=== PATIENT | male | born 1950 | race Caucasian/White ===

== ENCOUNTER 2017-10-16 21:27 | Emergency (ER) | payer MEDICARE, OTHER ==
[~2017-10-16] VITALS: Ht 180.3 cm; Wt 90.7 kg
[~2017-10-16 21:27] MED LIST: ATOR10 PO; LEVSOD100 PO
[2017-10-17] MEDS ORDERED: ERYT1OIN BOTHEYES (01:05)
== END 2017-10-17 01:21 | disposition home or self-care (01) ==
LOC: ER 21:27
DX: S05.02XA Injury of conjunctiva and corneal abrasion without foreign body, left eye, initial encounter (principal); S05.01XA Injury of conjunctiva and corneal abrasion without foreign body, right eye, initial encounter; X58.XXXA Exposure to other specified factors, initial encounter; Z88.1 Allergy status to other antibiotic agents; Z88.8 Allergy status to other drugs, medicaments and biological substances; Z79.899 Other long term (current) drug therapy; Z79.2 Long term (current) use of antibiotics
CPT/HCPCS: 99283

== ENCOUNTER 2021-03-13 07:46 | Inpatient (IN) | payer MEDICARE ==
[~2021-03-13] VITALS: Ht 180.3 cm; Wt 92.0 kg
[~2021-03-13 07:46] MED LIST changes: +ERYT1OIN BOTHEYES
[2021-03-13 09:47] LABS: BASOPHILS ABSOLUTE AUTO 0.04 K/mm3 (0.00-0.23); BASOPHILS PERCENT AUTO 0 % (0-2); EOSINOPHILS ABSOLUTE AUTO 0.12 K/mm3 (0.00-0.68); EOSINOPHILS PERCENT AUTO 1 % (0-6); Hematocrit 47.5 % (37.0-53.0); Hemoglobin 16.5 g/dL (13.5-17.5); IMMATURE GRAN ABSOLUTE AUTO 0.05 K/mm3 (0.00-0.10); IMMATURE GRAN PERCENT AUTO 1 % (0-1); LYMPHOCYTES ABSOLUTE AUTO 1.19 K/mm3 (0.84-5.20); LYMPHOCYTES PERCENT AUTO 12 % (21-46); MONOCYTES ABSOLUTE AUTO 0.75 K/mm3 (0.16-1.47); MONOCYTES PERCENT AUTO 8 % (4-13); Mean Corpuscular HGB 32.5 pg (26.0-34.0); Mean Corpuscular HGB Conc 34.7 g/dL (31.5-36.5); Mean Corpuscular Volume 94 fL (80-100); Mean Platelet Volume 9.9 fL (9.1-12.4); NEUTROPHILS ABSOLUTE AUTO 7.71 K/mm3 (1.96-9.15); NEUTROPHILS PERCENT AUTO 78 % (41-73); Platelet Count 193 K/mm3 (150-400); RDW Coefficient Variation 11.9 % (11.7-14.2); RDW Standard Deviation 41.2 fL (35.1-46.3); Red Blood Cell Count 5.08 M/mm3 (4.30-5.90); White Blood Cell Count 9.86 K/mm3 (4.00-11.30)
[2021-03-13 10:15] LABS: Alanine Aminotransfer (ALT/SGP 34 U/L (12-78); Albumin, Blood 3.3 g/dL (3.4-5.0); Albumin/Globulin Ratio 0.7 (0.8-1.8); Alk Phos 75 U/L (50-136); Anion Gap 7 mmol/L (6-16); Aspartate Aminotrans (AST/SGOT 29 U/L (12-37); Bilirubin, Total 0.5 mg/dL (0.1-1.0); Blood Urea Nitrogen 20 mg/dL (8-24); Bun/Creatinine Ratio 16.8 (12.0-20.0); CO2, Blood 21 mmol/L (21-32); Chloride, Blood 111 mmol/L (98-108); Creatinine, Blood 1.19 mg/dL (0.60-1.20); Globulin, Blood 4.5 g/dL (2.2-4.0); Glomerular Filtration Rate >60 (60-); Glucose, Blood 112 mg/dL (70-99); Potassium, Blood 4.3 mmol/L (3.5-5.5); Sodium, Blood 139 mmol/L (136-145); Total Protein, Blood 7.8 g/dL (6.4-8.2); Troponin I 0.015 ng/mL (0.000-0.040)
[2021-03-13 10:19] LABS: SARS-Cov-2 (COVID-19) PCR, MMC NEGATIVE (NEGATIVE)
--- NOTE | 2021-03-13 17:03 | NUR ---
PT TO CONSULTANT IN ERGONOMICS AND SAFETY AT THIS TIME WITH DR. FLOREZ.
--- NOTE | 2021-03-13 18:58 | NUR ---
ASSISTED WITH RECOVERY TO RIGHT RADIAL SITE AND RIGHT GROIN SITE THIS EVENING AT APPROX 1820. 7 TAKEN OUT OF TR BAND THIS EVENING; SLIGHT AMOUNT OF BLOOD NOTED TO TR BAND, NO CHANGES NOTED AFTER TAKING AIR OUT. RIGHT GROIN SITE SCANT AMOUNT OF BLOOD, OPSITE WITH CHG AND SUTURE NOTED. PT EDUCATED TO LIE FLAT FOR 2 HOURS THEN HE CAN SLOWLY SIT UP AND THEN UP AND OUT OF BED AT 4 HOURS. BEDSIDE REPORT GIVEN TO RN ASSUMING CARE OF PATIENT.
--- NOTE | 2021-03-13 19:52 | NUR ---
CARE ASSUMPTION PT LYING IN BED DNYING ANY PAIN OR NAUSEA. DR. FLOREZ CONTACTED TO CONFIRM HEPARIN ORDER. PT'S PTT WAS CH SO HEPARIN STOPPED FOR ONE HR PER PHARMACY AND WILL BE RESTARTED AT 2100. PT BEING GIVEN 1L OF NS PER DR. FLOREZ.VSS. PT ON RM AIR AT THIS TIME. FOOD AND WATER GIVEN TO PT WHO DENIES ANY FURTHER NEEDS AT THIS TIME.
--- NOTE | 2021-03-14 05:55 | NUR ---
LIBRARY TECHNICAL ASSISTANT SUMMARY PT HAS REMAINED AXO X4 AND USING THE CALL LIGHT TO MAKE HIS NEEDS KNOWN. PT HAS DENIED ANY CP OR PRESSURE THIS SHIFT EXCEPT FOR MILD GENERALIZED SORENESS. R RADIAL SITE HAD SMALL AMOUNT OF BLEEDING DURING THE RECOVERY DEFLATION PROCESS BUT TR BAND CAME OFF AT 2300 W NO S/S OF BLEEDING AFTER IT WAS OFF. R GROIN SITE SHOWED NO S/S OF BLEEDING THIS SHIFT AND IS SOFT AND MOSTLY NON-TENDER PER PT. O2 SATS >90% ON RM AIR. TELE SHOWING SR IN THE 60'S W INVERTED T WAVE. PT AFEBRILE THIS SHIFT W PEAK TEMP OF 99.0.
[2021-03-14] MEDS ORDERED: ATOR40TA PO ×2 (10:16)
[2021-03-14] MEDS ORDERED: ELIQUIS5 M2 PO ×4 (10:18→10:19)
[2021-03-14] MEDS ORDERED: XARELTO15 MG PO ×2 (12:44)
[2021-03-14] MEDS ORDERED: XARELTO20 MG PO ×2 (12:45)
--- NOTE | 2021-03-14 13:33 | NUR ---
DISCHARGE NOTE/CARE NOTE PT REMAINED ALERT AND ORIENTED T/O SHIFT. VITAL SIGNS WERE STABLE, SPO2 95-98% VIA ROOM AIR. PT DENIED CHEST PAIN/PRESSURE. ALSO DENIED SHORTNESS OF BREATH UPON AMBULATION TO BATHROOM. HEPARIN DRIP WAS DISCONTINUED APPROX. 1040 AND PHARMACY WAS NOTIFIED. RIGHT RADIAL ACCESS SITE REMAINED UNCHANGED FROM ASSESSMENT THIS AM. RIGHT RADIAL ACCESS SITE REMAINED COVERED WITH TRANSPARENT DRESSING. DR. FLOREZ ASSESSED RIGHT GROIN ACCESS SITE AND REMOVED SUTURES THIS AM. GROIN ACCESS SITE CLEAN AND COVERED WITH STERI STRIPS. THIS NURSE EDUCATED PATIENT ON ANGIO SITE CARE INCLUDING KEEPING SITES DRY/CLEAN FOR 24 HOURS. PT INFORMED AFTER 24 HOURS SHOWERS OK BUT NO BATHS/SOAKING SITES. PT EDUCATION HANDOUTS ALSO PROVIDED. 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 PT VERBALIZED UNDERSTANDING. PT ALSO INSTRUCTED ON DISCHARGE INFORMATION. PT LEFT PCU ROOM APPROX. 1320 AND PICKED PATIENT UP AT ER ENTRANCE.
== END 2021-03-14 13:20 | disposition home or self-care (01) | DRG 164 ==
LOC: ER 07:46 → MEDS 11:07 → PCU 11:07
PROVIDERS: Emergency Medicine; ADMIT Internal Medicine
PROC: 02CR3ZZ Extirpation of Matter from Left Pulmonary Artery, Percutaneous Approach (ICD-10-PCS; principal; 2021-03-13)
PROC: 02CQ3ZZ Extirpation of Matter from Right Pulmonary Artery, Percutaneous Approach (ICD-10-PCS; 2021-03-13)
PROC: B2111ZZ Fluoroscopy of Multiple Coronary Arteries using Low Osmolar Contrast (ICD-10-PCS; 2021-03-13)
PROC: B2151ZZ Fluoroscopy of Left Heart using Low Osmolar Contrast (ICD-10-PCS; 2021-03-13)
PROC: B240ZZ3 Ultrasonography of Single Coronary Artery, Intravascular (ICD-10-PCS; 2021-03-13)
PROC: 06H03DZ Insertion of Intraluminal Device into Inferior Vena Cava, Percutaneous Approach (ICD-10-PCS; 2021-03-13)
DX: I26.99 Other pulmonary embolism without acute cor pulmonale (principal); I25.110 Atherosclerotic heart disease of native coronary artery with unstable angina pectoris; I82.531 Chronic embolism and thrombosis of right popliteal vein; I82.551 Chronic embolism and thrombosis of right peroneal vein; I82.411 Acute embolism and thrombosis of right femoral vein; K21.9 Gastro-esophageal reflux disease without esophagitis; Z96.643 Presence of artificial hip joint, bilateral; E78.49 Other hyperlipidemia; F17.220 Nicotine dependence, chewing tobacco, uncomplicated; Z20.822 Contact with and (suspected) exposure to COVID-19; Z96.612 Presence of left artificial shoulder joint; Z98.890 Other specified postprocedural states; Z88.1 Allergy status to other antibiotic agents; Z88.8 Allergy status to other drugs, medicaments and biological substances
CPT/HCPCS: 36014; 36015; 36415; 37184; 37185; 37191; 71045; 71260; 75743; 75820; 75825; 76937; 80053; 83880; 84484; 85025; 85347; 85379; 85730; 92978; 93005; 93010; 93306; 93458; 93970; 96374; 99152; 99153; 99285-25; A9270; C1753; C1757; C1769; C1880; C1887; C1894; J1644; J2250; J3010; J7030; J7040; J7050; Q9967; U0004

== ENCOUNTER 2021-03-16 09:03 | Emergency (ER) | payer MEDICARE ==
[~2021-03-16] VITALS: Ht 180.3 cm; Wt 90.7 kg
[~2021-03-16 09:03] MED LIST changes: +ATOR40TA PO; +ELIQUIS5 M2 PO; +XARELTO15 MG PO; +XARELTO20 MG PO
[2021-03-16] MEDS ORDERED: AMOCLA875 PO (09:48)
== END 2021-03-16 09:58 | disposition home or self-care (01) ==
LOC: ER 09:03
DX: J02.9 Acute pharyngitis, unspecified (principal); Z88.1 Allergy status to other antibiotic agents; Z88.8 Allergy status to other drugs, medicaments and biological substances; Z79.899 Other long term (current) drug therapy; K21.9 Gastro-esophageal reflux disease without esophagitis; E78.5 Hyperlipidemia, unspecified; F17.220 Nicotine dependence, chewing tobacco, uncomplicated
CPT/HCPCS: 99284

== ENCOUNTER 2021-06-12 07:46 | Day surgery (SDC) | payer MEDICARE ==
[~2021-06-12] VITALS: Ht 177.8 cm; Wt 95.0 kg
[~2021-06-12 07:46] MED LIST changes: +AMOCLA875 PO
--- NOTE | 2021-06-12 18:10 | NUR ---
PT TO RECOVERY ROOM POST PROCEDURE. PT AWAKE AND CONVERSING APPROPRIATELY; DENIES PAIN POST PROCEDURE. MONITOR SR 60'S, B/P 133/83, AFEBRILE, SPO2 93-95% RA. R IJ SITE NO SWELLING/HEMATOMA, TEVIN AND TEGADERM DRSG INTACT. PT SITTING UP IN A RECLINER EATING DINNER.
--- NOTE | 2021-06-12 19:05 | NUR ---
PT DRESSED SELF WITHOUT ISSUE, SITE UNCHANGED; IV REMOVED-CANNULA INTACT.
--- NOTE | 2021-06-12 19:15 | NUR ---
PT RECEIVED DISCHARGE INSTRUCTIONS, MED LIST AND AFTER CARE INSTRUCTIONS; VERALIZED GOOD UNDERSTANDING. PT LEFT FACILITY VIA W/C, CONDITION STABLE.
== END 2021-06-12 19:15 | disposition home or self-care (01) ==
LOC: MHTC 07:46
DX: I26.99 Other pulmonary embolism without acute cor pulmonale (principal); I82.409 Acute embolism and thrombosis of unspecified deep veins of unspecified lower extremity; Z95.828 Presence of other vascular implants and grafts; K21.9 Gastro-esophageal reflux disease without esophagitis; E78.5 Hyperlipidemia, unspecified; Z79.01 Long term (current) use of anticoagulants
CPT/HCPCS: 37193; 75825; 76937; 99152; 99153; C1769; C1773; C1894; J1644; J2250; J3010; J7030; J7040; Q9967

== ENCOUNTER → 2022-10-30 | Outpatient (CLI) | payer MEDICARE | END | disposition home or self-care (01) | LOC: PLD 12:55 → LAB SHORT 12:55 | DX: H61.92 Disorder of left external ear, unspecified (principal); L92.9 Granulomatous disorder of the skin and subcutaneous tissue, unspecified | CPT/HCPCS: 88305; 88312 ==